=== PATIENT | female | born 1960 | race Caucasian/White ===

== ENCOUNTER → 2017-01-29 | Outpatient (CLI) | payer OTHER ==
[~2017-01-29] MED LIST: ATOR-2 PO; CODE1CAP2 PO; CYCL-259 PO; FLEXARIL PO; GABA300C10 PO; LEVO100T PO; LORA1TAB PO; MELO15TA24 PO; OXYC10TA6 PO; OXYC15TA PO; PREVACID PO; SIMV40TA3 PO; SYNTHROID PO; TRAM50TA2 PO; TRAMADOL PO
[2017-01-29 14:35] LABS: HEMATOCRIT 44.1 % (34.6-47.8); HEMOGLOBIN 14.9 g/dL (11.7-16.4); WHITE BLOOD COUNT 6.3 x10^3/uL (3.4-10)
[2017-01-29 14:43] LABS: PATH.CAST-FLAG NOT PRESENT; SPERM-FLAG NOT PRESENT; SRC-FLAG NOT PRESENT; XTAL-FLAG NOT PRESENT; YLC-FLAG NOT PRESENT
[2017-01-29 14:47] LABS: BLOOD UREA NITROGEN 12 mg/dL (7-18)
== END | disposition home or self-care (01) ==
LOC: STAR 13:11
PROVIDERS: ATTEND Orthopaedic Surgery Orthopaedic Surgery of the Spine
DX: Z01.818 Encounter for other preprocedural examination (principal); M43.16 Spondylolisthesis, lumbar region; M48.06 Spinal stenosis, lumbar region; R79.1 Abnormal coagulation profile
CPT/HCPCS: 36415; 71020; 80048; 81001; 85025; 85610; 85651; 85730; 93005

== ENCOUNTER 2017-02-03 08:13 | Inpatient (IN) | payer OTHER ==
[~2017-02-03] VITALS: Ht 149.9 cm; Wt 73.7 kg
[~2017-02-03 08:13] MED LIST changes: +BACITRACIN 50,000 UNIT ONE; +BUPIVACAINE/PF 0.5% ONE; +EPINEPHRINE 1 MG/ML, 1ML ONE; +THROMBIN 20,000 UNIT VIAL TP ONE; +VANCOMYCIN 1,000 MG ONE
[2017-02-03] MEDS ORDERED: VANCOMYCIN PMX 1GM/200ML 200 ML IV ONE (09:00)
[2017-02-03] MEDS ORDERED: LACTATED RINGERS 1,000 ML IV SCH (09:17)
[2017-02-03 09:22] VITALS: BP 128/87
[2017-02-03] MEDS ORDERED: CEFAZOLIN 1,000 MG ONE (10:30)
[2017-02-03] MEDS ORDERED: SUCCINYLCHOLINE 20 MG/ML, 10ML ONE (10:30)
[2017-02-03] MEDS ORDERED: ONDANSETRON 2MG/ML, 2ML ONE (10:30)
[2017-02-03] MEDS ORDERED: PROPOFOL 10 MG/ML, 20ML ONE (10:30)
[2017-02-03] MEDS ORDERED: DEXAMETHASONE 4 MG/ML, 1ML ONE (10:30)
[2017-02-03] MEDS ORDERED: ROCURONIUM 10 MG/ML ONE (10:30)
[2017-02-03] MEDS ORDERED: LABETALOL 5MG/ML, 20ML IV PRN ×2 (11:00→16:00)
[2017-02-03] MEDS ORDERED: hydrALAzine 20 MG/ML, 1ML IV PRN (11:00)
[2017-02-03] MEDS ORDERED: METOCLOPRAMIDE 5 MG/ML, 2ML IV PRN (11:00)
[2017-02-03] MEDS ORDERED: ONDANSETRON 2MG/ML, 2ML IVPush PRN (11:00)
[2017-02-03] MEDS ORDERED: ACETAMINOPHEN 325 MG TABLET PO PRN (11:00)
[2017-02-03] MEDS ORDERED: OXYcodone 5 MG/5 ML ORAL.SOL UDC PO PRN (11:00)
[2017-02-03] MEDS ORDERED: TRANEXAMIC ACID 100 MG/ML, 10ML ONE ×2 (11:05)
[2017-02-03] MEDS ORDERED: HYDROmorphone 2 MG/ML, 1ML ONE (11:22)
[2017-02-03] MEDS ORDERED: FENTANYL PF 100 MCG/2ML ONE ×3 (11:22→14:18)
[2017-02-03] MEDS ORDERED: MIDAZOLAM 1 MG/ML, 2ML ONE (11:23)
[2017-02-03] MEDS ORDERED: HYDROmorphone 1 MG/ML, 1ML ONE ×2 (13:32→13:55)
[2017-02-03] MEDS: FENTANYL PF 100 MCG/2ML IV PRN ×4 (13:35→14:30)
[2017-02-03] MEDS: HYDROmorphone 1 MG/ML, 1ML IV PRN ×4 (13:36→14:08)
[2017-02-03] MEDS ORDERED: HYDROmorphone PCA 30 MG/30 ML ONE (13:46)
[2017-02-03] MEDS: HYDROmorphone PCA 30 MG/30 ML IV PRN (13:53)
[2017-02-03] MEDS ORDERED: OXYcodone 5 MG/5 ML ORAL.SOL UDC ONE (13:59)
[2017-02-03] MEDS ORDERED: ACETAMINOPHEN 650 MG/20.3 ML UDC ONE (14:38)
[2017-02-03] MEDS ORDERED: OXYcodone IR 5MG TABLET PO PRN (15:30)
[2017-02-03] MEDS ORDERED: SODIUM CHLORIDE 0.9% 1,000ML IV PRN (15:30)
[2017-02-03] MEDS ORDERED: KETOROLAC 30 MG/1 ML IV PRN (15:30)
[2017-02-03] MEDS ORDERED: BISACODYL 10 MG SUPP PR PRN (16:00)
[2017-02-03] MEDS ORDERED: DIPHENHYDRAMINE 50 MG/ML, 1ML IVPush PRN (16:00)
[2017-02-03] MEDS ORDERED: PROMETHAZINE 25 MG/ML, 1ML IM PRN (16:00)
[2017-02-03] MEDS ORDERED: DIPHENHYDRAMINE 50 MG/ML, 1ML IM PRN (16:00)
[2017-02-03] MEDS ORDERED: morphine SULFATE 10 MG/ML, 1ML IV PRN (16:00)
[2017-02-03] MEDS ORDERED: DIPHENHYDRAMINE 50 MG CAPSULE PO PRN (16:00)
[2017-02-03] MEDS: D5%-0.9% NACL+KCL 20MEQ 1,000 ML IV SCH (16:52)
[2017-02-03] MEDS: CYCLOBENZAPRINE 10 MG TABLET PO SCH ×2 (16:52→20:44)
[2017-02-03] MEDS: GABAPENTIN 300 MG CAPSULE PO SCH ×2 (16:52→20:44)
[2017-02-03] MEDS: ATORVASTATIN 80 MG TABLET PO SCH (20:44)
[2017-02-03] MEDS ORDERED: ZOLPIDEM 5MG TABLET PO PRN (21:00)
[2017-02-04 00:03] VITALS: BP 113/75
[2017-02-04] MEDS: GABAPENTIN 300 MG CAPSULE PO SCH ×6 (01:05→20:26)
[2017-02-04] MEDS: D5%-0.9% NACL+KCL 20MEQ 1,000 ML IV SCH ×2 (02:00→12:26)
[2017-02-04] MEDS ORDERED: BUTALB/APAP/CAFFEINE 50MG/325MG/40MG PO PRN (02:30)
[2017-02-04] MEDS: ONDANSETRON 2MG/ML, 2ML IV PRN (03:05)
[2017-02-04 03:36] VITALS: BP 117/74
[2017-02-04 05:21] LABS: HEMATOCRIT 37.6 % (34.6-47.8); HEMOGLOBIN 12.6 g/dL (11.7-16.4); WHITE BLOOD COUNT 9.6 x10^3/uL (3.4-10)
[2017-02-04] MEDS: LEVOTHYROXINE 100 MCG TABLET PO SCH (06:29)
[2017-02-04] MEDS: SENNA/DOCUSATE TABLET PO SCH (09:08)
[2017-02-04] MEDS: CYCLOBENZAPRINE 10 MG TABLET PO SCH ×3 (09:08→20:26)
[2017-02-04 09:25] VITALS: BP 138/86
[2017-02-04] MEDS ORDERED: POLYETHYLENE GLYCOL 17 GM PACKET ONE (12:35)
[2017-02-04] MEDS: POLYETHYLENE GLYCOL 17 GM PACKET PO PRN (12:40)
[2017-02-04 14:34] VITALS: BP 116/81
[2017-02-04] MEDS: HYDROmorphone PCA 30 MG/30 ML IV PRN (17:13)
[2017-02-04] MEDS: ATORVASTATIN 80 MG TABLET PO SCH (20:26)
[2017-02-04 20:30] VITALS: BP 116/84
[2017-02-04] MEDS: DEXAMETHASONE 4 MG/ML, 1ML IVPush PRN (21:58)
[2017-02-05] MEDS: GABAPENTIN 300 MG CAPSULE PO SCH ×6 (01:38→21:27)
[2017-02-05 01:47] VITALS: BP 115/80
[2017-02-05] MEDS: D5%-0.9% NACL+KCL 20MEQ 1,000 ML IV SCH ×3 (05:32→21:30)
[2017-02-05 05:45] LABS: HEMATOCRIT 38.4 % (34.6-47.8); WHITE BLOOD COUNT 11.6 x10^3/uL (3.4-10)
[2017-02-05] MEDS: LEVOTHYROXINE 100 MCG TABLET PO SCH (07:43)
[2017-02-05 07:59] VITALS: BP 119/82
[2017-02-05] MEDS: SENNA/DOCUSATE TABLET PO SCH (08:41)
[2017-02-05] MEDS: CYCLOBENZAPRINE 10 MG TABLET PO SCH ×3 (08:44→21:27)
[2017-02-05 13:32] VITALS: BP 114/78
[2017-02-05] MEDS: MAGNESIUM HYDROXIDE 8%, 30ML UDC PO PRN (14:10)
[2017-02-05] MEDS: DEXAMETHASONE 4 MG/ML, 1ML IVPush PRN (15:15)
[2017-02-05 19:00] VITALS: BP 128/85
[2017-02-05] MEDS: ATORVASTATIN 80 MG TABLET PO SCH (21:27)
[2017-02-06 00:34] VITALS: BP 138/86
[2017-02-06] MEDS: GABAPENTIN 300 MG CAPSULE PO SCH ×7 (00:42→23:57)
[2017-02-06] MEDS: DEXAMETHASONE 4 MG/ML, 1ML IVPush PRN (00:42)
[2017-02-06] MEDS: ONDANSETRON 2MG/ML, 2ML IV PRN ×2 (04:10→15:22)
[2017-02-06 05:53] LABS: HEMATOCRIT 36.5 % (34.6-47.8); HEMOGLOBIN 12.4 g/dL (11.7-16.4)
[2017-02-06] MEDS: LEVOTHYROXINE 100 MCG TABLET PO SCH (05:56)
[2017-02-06 07:56] VITALS: BP 150/91
[2017-02-06] MEDS: SENNA/DOCUSATE TABLET PO SCH (09:00)
[2017-02-06] MEDS: CYCLOBENZAPRINE 10 MG TABLET PO SCH ×3 (09:00→21:01)
[2017-02-06] MEDS: D5%-0.9% NACL+KCL 20MEQ 1,000 ML IV SCH ×3 (09:36→21:01)
[2017-02-06 15:16] VITALS: BP 138/89
[2017-02-06] MEDS ORDERED: SIMETHICONE 80 MG CHEW TAB PO PRN (16:30)
[2017-02-06] MEDS ORDERED: CALCIUM CARBONATE 500 MG TAB.CHEW PO PRN (16:30)
[2017-02-06 20:23] VITALS: BP 130/88
[2017-02-06] MEDS: ATORVASTATIN 80 MG TABLET PO SCH (20:56)
[2017-02-06] MEDS: HYDROmorphone PCA 30 MG/30 ML IV PRN (21:43)
[2017-02-07 00:47] VITALS: BP 116/77
[2017-02-07] MEDS: GABAPENTIN 300 MG CAPSULE PO SCH ×5 (04:30→23:30)
[2017-02-07 06:06] LABS: HEMATOCRIT 32.1 % (34.6-47.8); HEMOGLOBIN 10.7 g/dL (11.7-16.4)
[2017-02-07] MEDS: LEVOTHYROXINE 100 MCG TABLET PO SCH (06:31)
[2017-02-07 07:01] VITALS: BP 125/85
[2017-02-07] MEDS: SENNA/DOCUSATE TABLET PO SCH (07:56)
[2017-02-07] MEDS: MAGNESIUM HYDROXIDE 8%, 30ML UDC PO PRN (07:57)
[2017-02-07] MEDS: CYCLOBENZAPRINE 10 MG TABLET PO SCH ×3 (07:57→23:33)
[2017-02-07] MEDS: D5%-0.9% NACL+KCL 20MEQ 1,000 ML IV SCH ×3 (08:00→23:31)
[2017-02-07] MEDS: OXYcodone IR 5MG TABLET PO PRN ×4 (11:19→23:30)
[2017-02-07 12:45] VITALS: BP 116/82
[2017-02-07 19:51] VITALS: BP 120/76
[2017-02-07] MEDS: ATORVASTATIN 80 MG TABLET PO SCH (23:31)
[2017-02-08 01:24] VITALS: BP 118/77
[2017-02-08] MEDS: OXYcodone IR 5MG TABLET PO PRN ×4 (04:06→17:15)
[2017-02-08] MEDS: GABAPENTIN 300 MG CAPSULE PO SCH ×5 (04:22→21:36)
[2017-02-08 05:21] LABS: HEMATOCRIT 31.7 % (34.6-47.8); HEMOGLOBIN 10.9 g/dL (11.7-16.4); WHITE BLOOD COUNT 7.4 x10^3/uL (3.4-10)
[2017-02-08] MEDS: LEVOTHYROXINE 100 MCG TABLET PO SCH (05:46)
[2017-02-08] MEDS: CYCLOBENZAPRINE 10 MG TABLET PO SCH ×3 (08:37→21:36)
[2017-02-08] MEDS: SENNA/DOCUSATE TABLET PO SCH (08:37)
[2017-02-08 09:07] VITALS: BP 137/84
[2017-02-08 15:34] VITALS: BP 126/86
[2017-02-08 21:27] VITALS: BP 111/70
[2017-02-08] MEDS: D5%-0.9% NACL+KCL 20MEQ 1,000 ML IV SCH (21:28)
[2017-02-08] MEDS: ATORVASTATIN 80 MG TABLET PO SCH (21:37)
[2017-02-09] MEDS: GABAPENTIN 300 MG CAPSULE PO SCH ×5 (01:14→16:45)
[2017-02-09] MEDS: OXYcodone IR 5MG TABLET PO PRN ×5 (01:15→14:24)
[2017-02-09 01:18] VITALS: BP 140/76
[2017-02-09 05:14] LABS: HEMATOCRIT 33.5 % (34.6-47.8); HEMOGLOBIN 11.2 g/dL (11.7-16.4)
[2017-02-09] MEDS: LEVOTHYROXINE 100 MCG TABLET PO SCH (05:20)
[2017-02-09] MEDS: POLYETHYLENE GLYCOL 17 GM PACKET PO PRN (05:26)
[2017-02-09 07:08] VITALS: BP 125/85
[2017-02-09] MEDS: CYCLOBENZAPRINE 10 MG TABLET PO SCH ×2 (09:01→15:53)
[2017-02-09] MEDS: SENNA/DOCUSATE TABLET PO SCH (09:02)
[2017-02-09] MEDS: D5%-0.9% NACL+KCL 20MEQ 1,000 ML IV SCH ×2 (10:00)
[2017-02-09 12:30] VITALS: BP 114/80
[2017-02-09] MEDS ORDERED: CEPH-368 PO ×2 (14:57→15:37)
[2017-02-09] MEDS ORDERED: CYCL-259 PO (15:36)
[2017-02-09] MEDS ORDERED: OXYC5TAB3 PO (15:36)
== END 2017-02-09 16:10 | disposition home or self-care (01) | DRG 460 ==
LOC: ORIP 08:13 → 4NOR 15:14
PROVIDERS: ADMIT Orthopaedic Surgery Orthopaedic Surgery of the Spine; ATTEND Orthopaedic Surgery Orthopaedic Surgery of the Spine
PROC: 0SG007J Fusion of Lumbar Vertebral Joint with Autologous Tissue Substitute, Posterior Approach, Anterior Column, Open Approach (ICD-10-PCS; 2017-02-03)
PROC: 0SJ30ZZ Inspection of Lumbosacral Joint, Open Approach (ICD-10-PCS; 2017-02-03)
PROC: 07DR3ZZ Extraction of Iliac Bone Marrow, Percutaneous Approach (ICD-10-PCS; 2017-02-03)
PROC: 4A11X4G Monitoring of Peripheral Nervous Electrical Activity, Intraoperative, External Approach (ICD-10-PCS; 2017-02-03)
PROC: 0SP30AZ Removal of Interbody Fusion Device from Lumbosacral Joint, Open Approach (ICD-10-PCS; principal; 2017-02-03 13:30)
DX: T84.84XA Pain due to internal orthopedic prosthetic devices, implants and grafts, initial encounter (principal); E03.9 Hypothyroidism, unspecified; M51.17 Intervertebral disc disorders with radiculopathy, lumbosacral region; M48.07 Spinal stenosis, lumbosacral region; M62.830 Muscle spasm of back; K21.9 Gastro-esophageal reflux disease without esophagitis; Y83.1 Surgical operation with implant of artificial internal device as the cause of abnormal reaction of the patient, or of later complication, without mention of misadventure at the time of the procedure; Y92.89 Other specified places as the place of occurrence of the external cause; Z90.49 Acquired absence of other specified parts of digestive tract; Z90.710 Acquired absence of both cervix and uterus; M51.16 Intervertebral disc disorders with radiculopathy, lumbar region; M48.06 Spinal stenosis, lumbar region; M43.16 Spondylolisthesis, lumbar region
CPT/HCPCS: 36415; 72100; 85025; C1713; J0171; J0690; J1100; J1170; J2250; J2405; J2704; J3010; J3370; J3490; C1760; C1762; C1763; C9362; J0330; J3480; J7030

== ENCOUNTER 2020-09-29 11:01 | Inpatient (IN) | payer BC, MEDICARE ==
[2020-09-26 15:54] LABS: HCT (SEDRATE) 48.6 % (34.6-47.8)
[2020-09-26 15:56] LABS: BASOPHILS % (AUTO) 0 % (0-1); EOSINOPHILS % (AUTO) 0 % (1-7); LYMPHOCYTES % (AUTO) 19 % (22-44); MEAN CORPUSCULAR HEMOGLOBIN 32.7 pg (27.0-34.8); MEAN CORPUSCULAR HGB CONC 34.6 g/dL (32.4-35.8); MEAN PLATELET VOLUME 8.9 fL (7.4-10.4); MONOCYTES % (AUTO) 7 % (2-9); NEUTROPHILS % (AUTO) 73 % (42-75); PLATELET COUNT 259 x10^3/uL (130-400); RED BLOOD COUNT 5.12 x10^6/uL (3.82-5.3); RED CELL DISTRIBUTION WIDTH 14.1 % (9.6-15.2)
[2020-09-26 15:58] LABS: MD NO
[2020-09-26 16:03] LABS: ALBUMIN 4.2 g/dL (3.4-5.0); ANION GAP 5 mmol/L (5-15); CALCIUM 9.8 mg/dL (8.5-10.1); CHLORIDE 97 mmol/L (98-107)
[2020-09-26 16:04] LABS: INTERNATIONAL NORMALIZED RATIO 1.02 (0.93-1.1); PROTHROMBIN TIME 10.9 Seconds (9.6-11.5)
[2020-09-26 16:06] LABS: ALANINE AMINOTRANSFERASE 46 U/L (12-78); ALKALINE PHOSPHATASE 142 U/L (45-117); BILIRUBIN,TOTAL 0.4 mg/dL (0.2-1.0); CREATININE 0.79 mg/dL (0.55-1.02); TOTAL PROTEIN 9.2 g/dL (6.4-8.2)
[~2020-09-29] VITALS: Ht 149.9 cm; Wt 75.1 kg
[~2020-09-29 11:01] MED LIST changes: +ATOR40TA78 PO; -BACITRACIN 50,000 UNIT ONE; -BUPIVACAINE/PF 0.5% ONE; +CEPH-368 PO; -CYCL-259 PO; +CYCL10TA2 PO; -EPINEPHRINE 1 MG/ML, 1ML ONE; +HYDR25TA6 PO; +METH750T87 PO; +METO25TA91 PO; -OXYC15TA PO; +OXYC15TA3 PO; +OXYC5CAP2 PO; +OXYC5TAB98 PO; +PANT40TA6 PO; +PROTONIX PO; +SIMV40TA20 PO; -SIMV40TA3 PO; -THROMBIN 20,000 UNIT VIAL TP ONE; +TOPI25TA32 PO; -VANCOMYCIN 1,000 MG ONE; +topomax PO
[2020-09-29] MEDS ORDERED: VANCOMYCIN 1,000 MG in SODIUM CHLORIDE 0.9% 250 ML IV ONE (11:30)
[2020-09-29] MEDS ORDERED: LACTATED RINGERS 1,000 ML IV SCH (12:00)
[2020-09-29] MEDS ORDERED: CHLORHEXIDINE 15 ML UDC PO ONE (12:00)
[2020-09-29] MEDS ORDERED: FENTANYL PF 250 MCG/5ML ONE (12:19)
[2020-09-29] MEDS ORDERED: MIDAZOLAM 1 MG/ML, 2ML ONE (12:19)
[2020-09-29] MEDS ORDERED: MEPERIDINE/PF 25MG/0.5ML IVPush PRN (12:30)
[2020-09-29] MEDS ORDERED: DIPHENHYDRAMINE 50 MG/ML, 1ML IVPush PRN ×2 (12:30→15:30)
[2020-09-29] MEDS ORDERED: LABETALOL 5MG/ML, 20ML IV PRN (12:30)
[2020-09-29] MEDS ORDERED: ACETAMINOPHEN 325 MG TABLET PO PRN (12:30)
[2020-09-29] MEDS ORDERED: OXYcodone 5 MG/5 ML ORAL.SOL UDC PO PRN (12:30)
[2020-09-29] MEDS ORDERED: PROMETHAZINE 25 MG/ML, 1ML IVPush PRN (12:30)
[2020-09-29] MEDS ORDERED: hydrALAzine 20 MG/ML, 1ML IV PRN (12:30)
[2020-09-29] MEDS ORDERED: HALOPERIDOL 5 MG/ML IV PRN (12:30)
[2020-09-29] MEDS ORDERED: BUPIVACAINE/PF 0.5% ONE (12:48)
[2020-09-29] MEDS ORDERED: EPINEPHRINE 1 MG/ML, 1ML ONE (12:49)
[2020-09-29] MEDS ORDERED: VANCOMYCIN 1,000 MG ONE (12:49)
[2020-09-29] MEDS ORDERED: CEFAZOLIN 1,000 MG ONE ×2 (12:49→15:01)
[2020-09-29] MEDS ORDERED: HYDROmorphone 1 MG/ML, 1ML INJ ONE ×3 (14:15→16:44)
[2020-09-29] MEDS ORDERED: SUCCINYLCHOLINE 20 MG/ML, 10ML ONE (15:01)
[2020-09-29] MEDS ORDERED: PROPOFOL 10 MG/ML, 20ML ONE (15:01)
[2020-09-29] MEDS ORDERED: ONDANSETRON 2MG/ML, 2ML ONE (15:01)
[2020-09-29] MEDS ORDERED: DEXAMETHASONE 4 MG/ML, 1ML ONE (15:01)
[2020-09-29] MEDS ORDERED: NEOSTIGMINE 1 MG/ML, 10ML ONE (15:01)
[2020-09-29] MEDS ORDERED: ROCURONIUM 10MG/ML,5ML ONE (15:01)
[2020-09-29] MEDS ORDERED: GLYCOPYRROLATE 0.2MG/1ML, 5ML ONE (15:01)
[2020-09-29] MEDS ORDERED: HYDROmorphone 2MG TABLET PO PRN (15:30)
[2020-09-29] MEDS ORDERED: DIAZEPAM 5 MG TABLET PO PRN (15:30)
[2020-09-29] MEDS ORDERED: MAGNESIUM HYDROXIDE 8%, 30ML UDC PO PRN (15:30)
[2020-09-29] MEDS: HYDROmorphone 1 MG/ML, 1ML INJ IVPush PRN ×4 (15:30→16:55)
[2020-09-29] MEDS ORDERED: SODIUM CHLORIDE 0.9% 1,000 ML IV PRN (15:30)
[2020-09-29] MEDS ORDERED: OXYcodone IR 5MG TABLET PO PRN (15:30)
[2020-09-29] MEDS ORDERED: ACETAMINOPHEN 500 MG TABLET PO PRN (15:30)
[2020-09-29] MEDS ORDERED: LABETALOL 5MG/ML, 20ML IVPush PRN (15:30)
[2020-09-29] MEDS ORDERED: BISACODYL 10 MG SUPP PR PRN (15:30)
[2020-09-29] MEDS ORDERED: ONDANSETRON 2MG/ML, 2ML IV PRN (15:30)
[2020-09-29] MEDS ORDERED: PROMETHAZINE 25 MG/ML, 1ML IM PRN (15:30)
[2020-09-29] MEDS ORDERED: DIPHENHYDRAMINE 50 MG CAPSULE PO PRN (15:30)
[2020-09-29] MEDS ORDERED: DIPHENHYDRAMINE 50 MG/ML, 1ML IM PRN (15:30)
[2020-09-29] MEDS ORDERED: OXYcodone 5 MG/5 ML ORAL.SOL UDC ONE (15:38)
[2020-09-29] MEDS: FENTANYL PF 100 MCG/2ML IV PRN ×2 (15:45→15:50)
[2020-09-29] MEDS ORDERED: FENTANYL PF 100 MCG/2ML ONE (15:55)
[2020-09-29] MEDS ORDERED: KETOROLAC 30 MG/1 ML IVPush ONE (16:00)
[2020-09-29] MEDS: METHOCARBAMOL 1,000 MG in DEXTROSE 5% 100 ML IV SCH (16:00)
[2020-09-29] MEDS ORDERED: morphine SULFATE 10 MG/ML, 1ML IVPush SCH (16:00)
[2020-09-29] MEDS ORDERED: DEXAMETHASONE 4 MG/ML, 1ML IVPush PRN (16:00)
[2020-09-29] MEDS ORDERED: LABETALOL 5MG/ML, 20ML ONE (16:52)
[2020-09-29] MEDS ORDERED: METHOCARBAMOL 750 MG TABLET PO SCH (17:30)
[2020-09-29] MEDS: METOPROLOL TARTRATE 25 MG TAB PO SCH (18:13)
[2020-09-29 19:10] VITALS: BP 128/79
[2020-09-29] MEDS ORDERED: ZOLPIDEM 5MG TABLET PO PRN (21:00)
[2020-09-29] MEDS: NS + 20MEQ KCL 1,000 ML IV SCH (21:06)
[2020-09-29] MEDS: ASPIRIN 325 MG TABLET PO SCH (21:54)
[2020-09-29] MEDS: ATORVASTATIN 40 MG TABLET PO SCH (21:54)
[2020-09-29] MEDS: GABAPENTIN 300 MG CAPSULE PO PRN (21:54)
[2020-09-29] MEDS: PANTOPRAZOLE 40MG TABLET PO SCH (21:54)
[2020-09-29] MEDS: CEFAZOLIN PMX 1GM/50ML 50 ML IVPB SCH (21:55)
[2020-09-29] MEDS: KETOROLAC 30 MG/1 ML IVPush PRN (21:56)
[2020-09-29] MEDS: morphine SULFATE 10 MG/ML, 1ML IVPush PRN (23:40)
[2020-09-29] MEDS: OXYcodone IR 5MG TABLET PO PRN (23:41)
[2020-09-30 00:05] VITALS: BP 145/79
[2020-09-30] MEDS: morphine SULFATE 10 MG/ML, 1ML IVPush PRN ×2 (00:52→06:24)
[2020-09-30] MEDS: METHOCARBAMOL 1,000 MG in DEXTROSE 5% 100 ML IV SCH ×2 (01:58→09:22)
[2020-09-30] MEDS: OXYcodone IR 5MG TABLET PO PRN (03:53)
[2020-09-30 04:22] VITALS: BP 102/69
[2020-09-30] MEDS: CEFAZOLIN PMX 1GM/50ML 50 ML IVPB SCH (05:45)
[2020-09-30] MEDS: LEVOTHYROXINE 100 MCG TABLET PO SCH (05:46)
[2020-09-30] MEDS: METOPROLOL TARTRATE 25 MG TAB PO SCH ×2 (05:46→17:57)
[2020-09-30] MEDS: NS + 20MEQ KCL 1,000 ML IV SCH ×2 (07:00→17:00)
[2020-09-30] MEDS: ASPIRIN 325 MG TABLET PO SCH ×2 (08:11→20:17)
[2020-09-30] MEDS: KETOROLAC 30 MG/1 ML IVPush PRN (08:11)
[2020-09-30] MEDS: GABAPENTIN 300 MG CAPSULE PO PRN ×3 (08:12→21:54)
[2020-09-30] MEDS: SENNA/DOCUSATE TABLET PO PRN (08:12)
[2020-09-30] MEDS: HYDROCHLOROTHIAZIDE 25 MG TABLET PO SCH (08:14)
[2020-09-30 08:50] VITALS: BP 112/65
[2020-09-30] MEDS: HYDROcodone/APAP 5/325 TABLET PO PRN ×3 (11:41→20:18)
[2020-09-30] MEDS: LORazepam 1MG TABLET PO PRN ×2 (13:08→21:54)
[2020-09-30 14:10] VITALS: BP 128/82
[2020-09-30] MEDS: METHOCARBAMOL 750 MG TABLET PO SCH (15:42)
[2020-09-30 19:12] VITALS: BP 106/70
[2020-09-30] MEDS: ATORVASTATIN 40 MG TABLET PO SCH (20:18)
[2020-09-30] MEDS: PANTOPRAZOLE 40MG TABLET PO SCH (20:18)
[2020-10-01 00:48] VITALS: BP 113/79
[2020-10-01] MEDS: METHOCARBAMOL 750 MG TABLET PO SCH ×3 (02:32→18:26)
[2020-10-01] MEDS: HYDROcodone/APAP 5/325 TABLET PO PRN ×4 (02:33→19:22)
[2020-10-01] MEDS: NS + 20MEQ KCL 1,000 ML IV SCH ×3 (03:00→22:01)
[2020-10-01] MEDS ORDERED: CALCIUM CARBONATE 500 MG TAB.CHEW PO PRN (06:30)
[2020-10-01] MEDS: GABAPENTIN 300 MG CAPSULE PO PRN ×3 (06:31→19:22)
[2020-10-01] MEDS: METOPROLOL TARTRATE 25 MG TAB PO SCH ×2 (06:31→17:18)
[2020-10-01] MEDS: LEVOTHYROXINE 100 MCG TABLET PO SCH (06:32)
[2020-10-01 07:04] VITALS: BP 104/67
[2020-10-01] MEDS: HYDROCHLOROTHIAZIDE 25 MG TABLET PO SCH (07:28)
[2020-10-01] MEDS: ASPIRIN 325 MG TABLET PO SCH ×2 (07:53→19:50)
[2020-10-01] MEDS: SENNA/DOCUSATE TABLET PO PRN (10:25)
[2020-10-01 12:40] VITALS: BP 115/77
[2020-10-01 18:34] VITALS: BP 123/68
[2020-10-01] MEDS: PANTOPRAZOLE 40MG TABLET PO SCH (19:49)
[2020-10-01] MEDS: ATORVASTATIN 40 MG TABLET PO SCH (19:49)
[2020-10-02] MEDS ORDERED: METHOCARBAMOL 750 MG TABLET PO SCH (00:30)
[2020-10-02] MEDS: HYDROcodone/APAP 5/325 TABLET PO PRN ×5 (00:32→20:44)
[2020-10-02 00:36] VITALS: BP 116/73
[2020-10-02] MEDS: METHOCARBAMOL 750 MG TABLET PO SCH ×3 (03:12→18:18)
[2020-10-02] MEDS: LEVOTHYROXINE 100 MCG TABLET PO SCH (05:20)
[2020-10-02] MEDS: METOPROLOL TARTRATE 25 MG TAB PO SCH ×2 (05:21→18:18)
[2020-10-02 05:23] VITALS: BP 114/79
[2020-10-02 07:50] VITALS: BP 108/74
[2020-10-02] MEDS: NS + 20MEQ KCL 1,000 ML IV SCH ×2 (08:32→19:00)
[2020-10-02] MEDS: ASPIRIN 325 MG TABLET PO SCH ×2 (08:33→20:43)
[2020-10-02] MEDS: HYDROCHLOROTHIAZIDE 25 MG TABLET PO SCH (08:33)
[2020-10-02] MEDS: GABAPENTIN 300 MG CAPSULE PO PRN ×2 (10:17→16:29)
[2020-10-02 13:25] VITALS: BP 113/72
[2020-10-02 18:19] VITALS: BP 117/72
[2020-10-02] MEDS: ATORVASTATIN 40 MG TABLET PO SCH (20:43)
[2020-10-02] MEDS: PANTOPRAZOLE 40MG TABLET PO SCH (20:44)
[2020-10-02] MEDS: LORazepam 1MG TABLET PO PRN (23:43)
[2020-10-03 01:19] VITALS: BP 91/50
[2020-10-03 03:25] VITALS: BP 108/70
[2020-10-03] MEDS: METHOCARBAMOL 750 MG TABLET PO SCH ×2 (03:26→11:26)
[2020-10-03] MEDS: GABAPENTIN 300 MG CAPSULE PO PRN ×2 (03:34→11:19)
[2020-10-03] MEDS: NS + 20MEQ KCL 1,000 ML IV SCH ×2 (03:41→13:47)
[2020-10-03] MEDS: METOPROLOL TARTRATE 25 MG TAB PO SCH (06:23)
[2020-10-03] MEDS: LEVOTHYROXINE 100 MCG TABLET PO SCH (06:23)
[2020-10-03] MEDS: HYDROcodone/APAP 5/325 TABLET PO PRN ×3 (06:47→15:13)
[2020-10-03 06:54] VITALS: BP 109/72
[2020-10-03] MEDS: HYDROCHLOROTHIAZIDE 25 MG TABLET PO SCH (07:21)
[2020-10-03] MEDS: ASPIRIN 325 MG TABLET PO SCH (07:35)
[2020-10-03 14:55] VITALS: BP 164/98
[2020-10-05] MEDS ORDERED: DICLOFENAC SODIUM 75 MG TABLET.DR PO SCH (08:00)
== END 2020-10-03 15:43 | disposition home or self-care (01) | DRG 470 ==
LOC: OR 11:01 → 4NE 17:20 → OR 23:37 → DCLOUNGE 10-03 15:33
PROVIDERS: ADMIT Orthopaedic Surgery Orthopaedic Surgery of the Spine; ATTEND Orthopaedic Surgery Orthopaedic Surgery of the Spine
PROC: 0SRB04A Replacement of Left Hip Joint with Ceramic on Polyethylene Synthetic Substitute, Uncemented, Open Approach (ICD-10-PCS; principal; 2020-09-29 13:00)
DX: M16.12 Unilateral primary osteoarthritis, left hip (principal); Z20.822 Contact with and (suspected) exposure to COVID-19
CPT/HCPCS: 36415; 72170; S0020; 71046; 80053; 83036; 85014; 85025; 85610; 85651; 85730; 86850; 86900; 87081; 93005; G0378; J0171; J0690; J1100; J1170; J1885; J2250; J2405; J2704; J2710; J3010; J3370; J3480; U0005; C1760; C1776; J0330; J2270; J2800; J7050; J7120; U0003